=== PATIENT | female | born 1980 | race Caucasian/White ===

== ENCOUNTER 2018-07-25 08:22 | Inpatient (IN) | payer SELFPAY ==
[~2018-07-25] VITALS: Ht 165.1 cm; Wt 82.6 kg
[2018-07-25 08:36] VITALS: BP_SYST 160
[2018-07-25] MEDS ORDERED: ASPIRIN 81 MG TAB.CHEW PO ONE (09:00)
[2018-07-25 09:24] LABS: HEMATOCRIT 29.9 % (36-48); HEMOGLOBIN 8.6 g/dL (12.0-16.0); MEAN CORPUSCULAR HEMOGLOBIN 19 pg (27-31); MEAN CORPUSCULAR HGB CONC 29 % (32-36); MEAN CORPUSCULAR VOLUME 66 fL (79.0-98.0); PLATELET COUNT (AUTO) 344 K/uL (130-430); RED BLOOD CELL COUNT(AUTO) 4.55 MIL/uL (4.2-6.2); RED CELL DISTRIBUTION WIDTH 22.5 % (9.0-15.0); WHITE BLOOD COUNT (AUTO) 3.3 K/uL (4.8-10.8)
[2018-07-25 09:47] LABS: CALCIUM 8.9 mg/dL (8.4-11.0); CREATININE 0.55 mg/dL (0.55-1.30)
[2018-07-25 09:50] LABS: ALBUMIN 3.8 g/dL (3.4-4.8); TOTAL BILIRUBIN 0.6 mg/dL (0.0-1.0)
[2018-07-25] MEDS ORDERED: NITROGLYCERIN 1 INCH (GM) OINT. TP ONE (10:45)
[2018-07-25 10:59] LABS: BASOPHILS % (MANUAL) 0 % (0-2); EOSINOPHILS % (MANUAL) 3 % (0-7); LYMPHOCYTES % (MANUAL) 36 % (20-46); MONOCYTES % (MANUAL) 6 % (0-11)
[2018-07-25 11:44] VITALS: BP_SYST 131
[2018-07-25] MEDS ORDERED: MILK OF MAGNESIA 30 ML UDC PO PRN (12:45)
[2018-07-25 13:36] LABS: TOTAL IRON BIND. CAPACITY 467 ug/dL (250-450)
[2018-07-25 16:02] VITALS: BP_SYST 105
[2018-07-25 20:00] VITALS: BP_SYST 113
[2018-07-25] MEDS: FERROUS SULFATE 325 MG TABLET.DR PO SCH (20:18)
[2018-07-26] VITALS: BP_SYST 105
[2018-07-26 07:39] LABS: CHLORIDE 105 mmol/L (98-107)
[2018-07-26 07:41] LABS: POTASSIUM 3.9 mmol/L (3.5-5.1); SODIUM SERUM 137 mmol/L (136-145)
[2018-07-26 07:42] LABS: ALANINE AMINOTRANSFERASE 17 U/L (12-78); ALBUMIN 3.2 g/dL (3.4-4.8); ANION GAP 9 (5-15); ASPARTATE AMINOTRANSFERASE 11 U/L (10-37); CALCIUM 8.7 mg/dL (8.4-11.0); CREATININE 0.56 mg/dL (0.55-1.30); GFR AFRICAN AMERICAN 155 mL/min (>90); GLUCOSE 93 mg/dL (70-99); TOTAL BILIRUBIN 0.5 mg/dL (0.0-1.0); UREA NITROGEN, BLOOD 15 mg/dL (8-21)
[2018-07-26 07:43] LABS: CHOLESTEROL 123 mg/dL (<200); HDL CHOLESTEROL 31 mg/dL (>55); LDL CHOLESTEROL 85 mg/dL (<100); TRIGLYCERIDES 92 mg/dL (30-150)
[2018-07-26 08:00] VITALS: BP_SYST 102
[2018-07-26 08:23] LABS: BASOPHILS # (AUTO) 0.1 K/uL (0.0-0.2); BASOPHILS % (AUTO) 1.4 % (0.0-2.0); EOSINOPHILS # (AUTO) 0.2 K/uL (0.0-0.4); EOSINOPHILS % (AUTO) 3.9 % (0.0-4.0); HEMATOCRIT 28.7 % (36-48); HEMOGLOBIN 8.3 g/dL (12.0-16.0); LYMPHOCYTES # (AUTO) 1.8 K/uL (1.0-5.5); LYMPHOCYTES % (AUTO) 42.3 % (20.5-51.5); MEAN CORPUSCULAR HEMOGLOBIN 19 pg (27-31); MEAN CORPUSCULAR HGB CONC 29 % (32-36); MEAN CORPUSCULAR VOLUME 67 fL (79.0-98.0); MONOCYTES # (AUTO) 0.3 K/uL (0.0-1.0); MONOCYTES % (AUTO) 7.1 % (1.7-9.3); PLATELET COUNT (AUTO) 395 K/uL (130-430); RED BLOOD CELL COUNT(AUTO) 4.28 MIL/uL (4.2-6.2); WHITE BLOOD COUNT (AUTO) 4.4 K/uL (4.8-10.8)
[2018-07-26 08:26] LABS: NEUTROPHILS % (AUTO) 45.3 % (40.0-70.0)
[2018-07-26] MEDS: FERROUS SULFATE 325 MG TABLET.DR PO SCH (08:30)
[2018-07-26 09:46] VITALS: BP_SYST 128
== END 2018-07-26 10:14 | disposition home or self-care (01) | DRG 313 ==
LOC: SED 08:22 → STU 11:17
PROVIDERS: ADMIT Internal Medicine Hospice and Palliative Medicine; ATTEND Internal Medicine Hospice and Palliative Medicine
DX: R07.89 Other chest pain (principal); F41.9 Anxiety disorder, unspecified; D50.0 Iron deficiency anemia secondary to blood loss (chronic); G43.909 Migraine, unspecified, not intractable, without status migrainosus; N92.0 Excessive and frequent menstruation with regular cycle; Z90.49 Acquired absence of other specified parts of digestive tract
CPT/HCPCS: 36415; 71045; 80053; 80061; 82550-TC; 82728; 83540-TC; 83550-TC; 84443-TC; 84484; 85007; 85025; 85027; 85379; 85610-TC; 85730-TC; 90656; 93005; 93306; 99285

== ENCOUNTER 2020-10-16 21:18 | Emergency (ER) | payer MEDICAID ==
[~2020-10-16] VITALS: Ht 165.1 cm; Wt 81.6 kg
[2020-10-16 21:36] VITALS: BP_SYST 136
--- NOTE | 2020-10-16 21:41 | NUR ---
Patient triaged and placed in waiting room. VSS and patient appears in no acute distress at this time. Accompanied by self , awaiting available bed, and MD notified of need for MSE.
--- NOTE | 2020-10-16 21:42 | NUR ---
Pt brought by self, A&Ox4, pt presents to ER with vaginal irritation/ redness, itching , skin pink and warm, cap refill <3, VSS, respirations even and unlabored, cap refill <3, pt states she has been taking antibiotics for vaginal strep B and fluconazole for yeast infection,will cont to monitor.
--- NOTE | 2020-10-16 21:47 | NUR ---
Dr Pritchett evaluating patient in the tent
--- NOTE | 2020-10-16 23:15 | NUR ---
PT TO TRIAGE ROOM FOR VAGINAL EXAMINATION
--- NOTE | 2020-10-16 23:25 | NUR ---
MD GREGORY IN TRIAGE ROOM PERFORMING VAGINAL EXAMINATION
--- NOTE | 2020-10-16 23:32 | NUR ---
VAGINAL SAMPLE SENT TO LAB
[2020-10-17] MEDS ORDERED: IBUPROFEN 400 MG TABLET PO ONE (00:15)
[2020-10-17] MEDS ORDERED: HYDROcodone/ACETAMIN 5-325 MG TAB (NORCO/ VICODIN) PO ONE (00:15)
[2020-10-17 00:49] LABS: BILIRUBIN,URINE NEGATIVE (NEGATIVE); BLOOD, URINE NEGATIVE (NEGATIVE); CLARITY/URINE CLEAR (CLEAR); COLOR,URINE YELLOW (YELLOW); GLUCOSE,URINE NEGATIVE (NEGATIVE); KETONES,URINE TRACE (NEGATIVE); LEUKOCYTE ESTERASE ,URINE 2+ (NEGATIVE); NITRITE, URINE NEGATIVE (NEGATIVE); PH,URINE 5.5 (5.0-8.0); PROTEIN URINE NEGATIVE (NEGATIVE); UROBILINOGEN,URINE 0.2 (0.2-1.0)
[2020-10-17 00:54] LABS: RBC,URINE 0-3 /HPF (0-3)
[2020-10-17 00:55] LABS: BACTERIA,URINE FEW /HPF (None Seen); YEAST,URINE Few /HPF (None Seen)
[2020-10-17 01:13] VITALS: BP_SYST 136
--- NOTE | 2020-10-17 01:13 | NUR ---
Patient given written and verbal discharge instructions and verbalizes understanding. ER MD GREGORY discussed with patient the results and treatment provided. Patient in stable condition. ID arm band removed. Rx of FLAGYL, KEFLEX, AND CLOTRIMAZOLE given. Patient educated on pain management and to follow up with PMD. Pain Scale 4/10. Opportunity for questions provided and answered. Medication side effect fact sheet provided.
[2020-10-19 01:08] LABS: CHLAMYDIA TRACHOMATIS NAA Negative (Negative); NEISSERIA GONORRHOEAE NAA Negative (Negative)
--- NOTE | 2020-10-19 19:02 | NUR ---
Dr Delgado, W notified urine culture indicates Escherichia Coli, pt was given Keflex , per patient feeling better, pt notified if symptoms return follow back with PCP or come back to ER, Pt agreeable, notified.
== END 2020-10-17 01:13 | disposition home or self-care (01) ==
LOC: SED 21:18
DX: U07.1 COVID-19 (principal); J18.9 Pneumonia, unspecified organism
CPT/HCPCS: 81000-TC; 81025; 82962; 87086; 87210-TC; 87491; 87591; 99283

== ENCOUNTER 2021-05-16 15:14 | Emergency (ER) | payer MEDICAID, SELFPAY ==
[~2021-05-16] VITALS: Ht 165.1 cm; Wt 82.6 kg
--- NOTE | 2021-05-16 15:20 | NUR ---
Patient to TENT to gown for evaluation. Side rails up.
--- NOTE | 2021-05-16 15:30 | NUR ---
PT ARRIVES FROM HOME AFTER TESTING POSTIVE FOR COVID ON WEDNESDAY. PT DID NOT RECEIVE THE COVID VACCINE. ARRIVES FROM HOME W/ CHEST WALL PRESSURE, INCREASING GEN WEAK, DRY COUGH, AND BODY ACHES. PT IS SPEAKING IN COMPLETE SENTENCES, CURRENT O2 SAT IS 97% ON RA
[2021-05-16 15:31] VITALS: BP_SYST 134
--- NOTE | 2021-05-16 16:00 | NUR ---
ER at bedside examining patient.
[2021-05-16] MEDS ORDERED: GUAI100S14 PO (16:40)
[2021-05-16] MEDS ORDERED: IBUP-1969 PO (16:40)
[2021-05-16] MEDS ORDERED: ACET-2634 PO (16:40)
[2021-05-16 16:49] VITALS: BP_SYST 134
--- NOTE | 2021-05-16 16:55 | NUR ---
Patient given written and verbal discharge instructions and verbalizes understanding. ER MD discussed with patient the results and treatment provided. Patient in stable condition. ID arm band removed. PT LEFT W/OUT DC INSTRUCTIONS
== END 2021-05-16 16:30 | disposition home or self-care (01) ==
LOC: SED 15:14
DX: U07.1 COVID-19 (principal); Z79.899 Other long term (current) drug therapy
CPT/HCPCS: 99281